=== PATIENT | male | born 1965 | race Caucasian/White ===

== ENCOUNTER 2017-03-19 08:46 | Outpatient (CLI) | payer OTHER ==
--- NOTE | 2017-03-19 09:33 | RAD ---
AP PELVIS: Date: 03/19/17 HISTORY: Hip pain. FINDINGS/IMPRESSION: There are minimal degenerative changes in the hip joints. No fracture, dislocation, or bony destructi on is seen. POS: [facility]
--- NOTE | 2017-03-19 09:38 | RAD ---
RADIOGRAPH RIGHT HIP 2 VIEWS: Date: 03/19/17 HISTORY: 51-year-old male with degenerative joint disease of the right hip. FINDINGS: The hip joint space is maintained. Femoral head contour is maintained. No subcapital or acetabular os teophytes. No subchondral cysts identified. The right SI joint also appears normal. No fracture or di slocation. IMPRESSION: Normal. POS: [facility]
--- NOTE | 2017-03-19 09:39 | RAD ---
RADIOGRAPH LEFT HIP 2 VIEWS: Date: 03/19/17 HISTORY: 51-year-old male with degenerative joint disease of the left hip. FINDINGS: The hip joint space is maintained. Femoral head contour is maintained. No subcapital or acetabular os teophytes. No subchondral cysts identified. The left SI joint also appears normal. No fracture or dis location. IMPRESSION: Normal. POS: [facility]
== END 2017-03-19 08:47 | disposition home or self-care (01) ==
LOC: MADRAD 08:46
PROVIDERS: ATTEND Orthopaedic Surgery
DX: M25.9 Joint disorder, unspecified (principal)
CPT/HCPCS: 72170